=== PATIENT | male | born 1965 | race Two or more races ===

== ENCOUNTER 2022-06-02 19:30 | Emergency (ER) | payer OTHER ==
[~2022-06-02] VITALS: Ht 172.7 cm; Wt 93.0 kg
[2022-06-02 19:41] VITALS: BP 110/45
--- NOTE | 2022-06-02 19:50 | NUR ---
pt to bed 2. pt on threat monitoring analyst
--- NOTE | 2022-06-02 19:51 | NUR ---
56 yo m biba from home with c/c of etoh. pt was found with tall can by him, called medics. pt is able to recall name and situation. gcs 15. pt answers selective questions. states he does drink on the daily but did not state how much. denies pain, n/v and discomfort. denies hx, rx and allergies
[2022-06-02 20:25] LABS: BASOPHILS % (AUTO) 0.5 % (0.0-2.0); EOSINOPHILS % (AUTO) 0.1 % (0.0-4.0); HEMATOCRIT 42.9 % (36-52); HEMOGLOBIN 14.9 g/dL (12.0-18.0); LYMPHOCYTES # (AUTO) 1.7 K/uL (2.0-11.5); LYMPHOCYTES % (AUTO) 24.6 % (20.5-51.1); MEAN CORPUSCULAR HEMOGLOBIN 29 pg (27-31); MEAN CORPUSCULAR HGB CONC 35 g/dL (33-37); MEAN CORPUSCULAR VOLUME 82.3 fL (80-94); MONOCYTES # (AUTO) 0.9 K/uL (0.8-1.0); MONOCYTES % (AUTO) 12.7 % (1.7-9.3); NEUTROPHILS # (AUTO) 4.3 K/uL (1.8-7.7); NEUTROPHILS % (AUTO) 62.1 % (42.2-75.2); PLATELET COUNT (AUTO) 326 K/uL (140-450); RED BLOOD CELL COUNT(AUTO) 5.21 MIL/uL (4.20-6.10)
[2022-06-02] MEDS: NACL 0.9% 1,000 ML IV ONE ×2 (20:30→22:00)
[2022-06-02] MEDS: ONDANSETRON 4 MG/2 ML VIAL IVP ONE (20:30)
[2022-06-02 21:04] LABS: ALBUMIN 3.5 g/dL (3.4-5.0); ANION GAP 15.8 (8-16); ASPARTATE AMINOTRANSFERASE 69 U/L (15-37); CARBON DIOXIDE 21.6 mmol/L (21-32); CHLORIDE 92 mmol/L (98-107); CREATININE 0.8 mg/dL (0.6-1.3); GFR ARICAN-AMERICAN 128 mL/min (>90); GLUCOSE 140 mg/dL (74-106); POTASSIUM 3.4 mmol/L (3.5-5.1); SODIUM SERUM 126 mmol/L (136-145); TOTAL BILIRUBIN 2.1 mg/dL (0.0-1.0); UREA NITROGEN, BLOOD 11 mg/dL (7-18)
--- NOTE | 2022-06-02 21:20 | NUR ---
pt pulled iv out. ermd stated its ok for now, if needed replace.
--- NOTE | 2022-06-02 21:24 | NUR ---
Change new bed sheet, gown and re-position patient.
--- NOTE | 2022-06-02 21:31 | NUR ---
pt to ct
--- NOTE | 2022-06-02 21:51 | NUR ---
pt back from ct via rafa
--- NOTE | 2022-06-02 22:13 | NUR ---
straight cath pt for urine, more than 1000cc of edwin urine return, ermd hugo place indwelling cath. orders carried out Addendum: 06/02/22 at 2213 by [facility] using sterile technique
--- NOTE | 2022-06-02 22:17 | NUR ---
pt endorsed to guillermo ontiveros. transfer of care at this time.
[2022-06-02 22:23] LABS: APPEARANCE,URINE CLEAR (CLEAR); BILIRUBIN,URINE NEGATIVE (NEGATIVE); BLOOD, URINE 1+ (NEGATIVE); COLOR,URINE YELLOW (YELLOW); LEUKOCYTE ESTERASE ,URINE NEGATIVE (NEGATIVE); NITRITE, URINE NEGATIVE (NEGATIVE); UGLUCOSE NEGATIVE (NEGATIVE)
[2022-06-02 22:43] LABS: BARBITURATE, URINE NEGATIVE ng/ml (NEG <=200); BENZODIAZEPINE, URINE NEGATIVE ng/mL (NEG <=200); CANNABINOID, URINE NEGATIVE ng/mL (NEG <=50); COCAINE, URINE NEGATIVE ng/mL (NEG <=300); OPIATE, URINE NEGATIVE ng/mL (NEG <=2000); PHENCYCLIDINE SCREEN,URINE NEGATIVE ng/mL (NEG <=25)
[2022-06-02 22:45] LABS: WBC,URINE NONE SEEN /HPF (0-5)
[2022-06-02] MEDS: THIAMINE 200 MG/2 ML VIAL IM ONE (23:10)
[2022-06-02] MEDS: FOLIC ACID 5 MG/ML SYR IM ONE (23:10)
--- NOTE | 2022-06-02 23:17 | NUR ---
EMPTIED 1000 CC FROM [facility]
--- NOTE | 2022-06-02 23:20 | NUR ---
PROVIDED PT WITH BLANKET, PT RESTING COMFORTABLY IN BED. VSS
--- NOTE | 2022-06-02 23:52 | NUR ---
Patient had PM diarrhea.
[2022-06-03] MEDS ORDERED: MULTIVITAMIN-12 10 ML VIAL IV ONE (00:06)
[2022-06-03] MEDS: MAG SULF 2000 MG/WATER PREMIX 50 ML IV ONE (00:39)
[2022-06-03] MEDS: MULTIVITAMIN-12 10 ML in NACL 0.9% 1,000 ML IV ONE (00:40)
--- NOTE | 2022-06-03 02:27 | NUR ---
EMPTIED 1000CC FROM [facility]
[2022-06-03] MEDS: ONDANSETRON 4 MG/2 ML VIAL IVP ONE (02:59)
--- NOTE | 2022-06-03 03:00 | NUR ---
PT STATED HE WAS FEELING NAUSEATED, REQUESTED ZOFRAN FROM [facility].
[2022-06-03] MEDS: LORazepam 2 MG/ML VIAL IVP ONE (03:31)
--- NOTE | 2022-06-03 04:38 | NUR ---
Patient appears to be resting comfortably in bed. Vital Signs within normal limits. Respirations even and unlabored.
--- NOTE | 2022-06-03 06:01 | NUR ---
Patient appears to be resting comfortably in bed. Vital Signs within normal limits. Respirations even and unlabored.
--- NOTE | 2022-06-03 06:22 | NUR ---
COVID-19 swabs collected and sent to lab.
--- NOTE | 2022-06-03 07:13 | NUR ---
Pt report given to [facility]. Transfer of care at this time.
--- NOTE | 2022-06-03 09:30 | NUR ---
1500 ML OF URINE EMPTED FROM F/C.
--- NOTE | 2022-06-03 10:08 | NUR ---
PT ETA TO BE PICKED UP AND TRANSFERD TO [facility] IS 60-90 MIN. PT WILL BE GOING IN TO ROOM 2147. SPOKE WITH YOMAIRA RUFF AND GAVE REPORT. [phone] EXT: [phone].
[2022-06-03 11:31] VITALS: BP 144/91
--- NOTE | 2022-06-05 19:37 | NUR ---
LATE ENTRY, MV1-12 FLUIDS DISCONTINUED 1131 ON 06/03/22
== END 2022-06-03 10:08 | disposition short-term general hospital (02) ==
LOC: MED 19:30
DX: E87.1 Hypo-osmolality and hyponatremia (principal); Z20.822 Contact with and (suspected) exposure to COVID-19; F10.129 Alcohol abuse with intoxication, unspecified; R33.9 Retention of urine, unspecified; Y90.9 Presence of alcohol in blood, level not specified
CPT/HCPCS: 36415; 70450; 80053; 80305; 81001; 82140; 84484; 85025; 87426; 93005; 96361; 96365; 96366; 96372; 96375; 96376; 99285; A9153; G0482; J2060; J2405; J3411; J3475; J3490